=== PATIENT | female | born 1940 | race Caucasian/White ===

== ENCOUNTER 2023-11-12 14:30 | Outpatient (RCR) | payer MEDICARE, SELFPAY ==
--- NOTE | 2023-11-03 14:43 | PT.OIE ---
Current Diagnoses Pain in left hip (11/03/23) Muscle weakness (generalized) (11/03/23) Visit Care Team Role Provider Type Alice Deal MD Attending Provider Non-Staff Primary Care Provider Referring Provider Specialty: Family Practice Address: [facility], [address] [place] [address], [place], [address] Fax: Email: Physical Therapy Initial Evaluation PT-OP-A Visit Information Start: 11/03/23 14:21 Freq: Status: Active Protocol: Document 11/03/23 10:30 DCW (Rec: 11/03/23 14:43 DCW [id number]) Out-Patient Physical Therapy Visit Information Visit Information Visit Type Initial Evaluation Visit Start Time 10:30 Visit Stop Time 11:15 Visit Number 1 Number of PASTER OPERATOR Visits 0 Evaluation Information Evaluation Date 11/03/23 PT-OP-B Current Condition Start: 11/03/23 14:21 Freq: Status: Active Protocol: Document 11/03/23 10:30 DCW (Rec: 11/03/23 14:43 DCW [id number]) Current Condition History of Current Condition Onset Date One year Current Complaints Worsening L hip pain ascending stairs History of Current Condition Pt is an 82 year old female presenting with a one year history of worsening left hip pain with ascending stairs. Pt notes this is very specifically the only think that typically causes her symptoms. If she performs a step-to pattern leading with her right, there is no pain. No stairs in her home, but does have a few in her daughter's house. No other overall complaints. PT-OP-C Subjective Start: 11/03/23 14:21 Freq: Status: Active Protocol: Document 11/03/23 10:30 DCW (Rec: 11/03/23 14:43 DCW [id number]) OP-PT Subjective Patient Comments Patient Comments I feel kind of silly coming in here for this small of a thing, but my daughter decided that I needed to. Patient Reported Progress Worse Patient Questionnaires Lower Extremity Functional Scale LEFS Score 54/80 = 67.5% LEFS Impairment 20 to 39% Impaired (Score 48- 62) PT-OP-F Manual Assessment Start: 11/03/23 14:21 Freq: Status: Active Protocol: Document 11/03/23 10:30 DCW (Rec: 11/03/23 14:43 DCW [id number]) Manual Assessments Joint Mobility Assessment Joint Mobility Assessment PROM of left hip fairly significantly limited, difficult to mobilize pt's hip past 90? flexion or 5? internal rotation. PT-OP-K Range of Motion Start: 11/03/23 14:21 Freq: Status: Active Protocol: Document 11/03/23 10:30 DCW (Rec: 11/03/23 14:43 DCW [id number]) Hip Goniometric Range of Motion Hip Left Active Hip ROM WFL No Testing Position Supine Flexion w/Knee Flexed 92 Internal Rotation 5 Comments Adduction: 7? Hip ROM Limitations Hip ROM Limitations Bony Restriction PT-OP-L Special Tests Start: 11/03/23 14:21 Freq: Status: Active Protocol: Document 11/03/23 10:30 DCW (Rec: 11/03/23 14:43 DCW [id number]) Special Tests Hip Special Tests Dilshad Test Results Negative Straight Leg Raise Test Results Negative Scour Test Test Results Mild soreness YO Test Results Negative PT-OP-M Strength Start: 11/03/23 14:21 Freq: Status: Active Protocol: Document 11/03/23 10:30 DCW (Rec: 11/03/23 14:43 DCW [id number]) Hip Strength Hip Manual Muscle Testing Right Flexion (L2) 4- Good- Extension (S1) 4- Good- Abduction 4- Good- Adduction 4- Good- External Rotation 4- Good- Internal Rotation 4- Good- Left Flexion (L2) 3 Fair Extension (S1) 4- Good- Abduction 4- Good- External Rotation 4- Good- Internal Rotation 3 Fair PT-OP-Q Treatments Start: 11/03/23 14:21 Freq: Status: Active Protocol: Document 11/03/23 10:30 DCW (Rec: 11/03/23 14:43 DCW [id number]) Therapeutic Exercises Sidelying Exercises Abduction Sidelying Exercise Name Hip Abduction Side left Comments HEP Reverse Clamshell Sidelying Exercise Name Reverse Clamshell Side left Comments HEP Clamshell Sidelying Exercise Name Clamshell Side left Comments HEP Standing Exercises Toe Taps Standing Exercise Name Toe-taps Side bilateral Comments HEP Abduction Standing Exercise Name Hip Abduction Side bilateral Resistance Lv 1 T-band Comments HEP PT-OP-T Assessment and Plan Start: 11/03/23 14:21 Freq: Status: Active Protocol: Document 11/03/23 10:30 DCW (Rec: 11/03/23 14:43 DCW [id number]) Physical Therapy Assessment Rehab Potential Rehabilitation Potential Good Evaluation Complexity Number of Personal Factors/Comorbidities 0 Number of Body Systems Impaired 1-2 Clinical Presentation at Evaluation Evolving Impairments Impairments Functional Activities, Functional Mobility,Pain Goals Two Impairment Pt unable to ascend stairs using step-through gait without left hip pain Alf Goal (LTG) Pt to return to ascending stairs step-through without pain in order to improve ability to visit daughter's home LTG Duration 01/03/24 One Impairment Pt does not have an appropriate home exercise program Short Term Goal (STG) Pt to be independent and compliant with an appropriate HEP STG Duration 12/04/23 Assessment Summary Assessment Pt presents with 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 Fairly limited with active and passive ROM secondary to decline in joint surface integrity. Pt overall weakness in hips is somewhat limited in testing due to apparent DJD limiting pt from moving joint through full ROM against gravity. At this point , however, pt only bothered by pain during ascending stairs. Will likely benefit from skilled therapeutic intervention focusing on improving hip strength and mobility, but if symptoms remain fairly consistent, will likely transition quickly to an independent HEP focusing on strengthening and stabilization of her bilateral hips. Physical Therapy Plan Frequency and Duration Frequency of Treatment 1-2x/week Plan of Care Start Date 11/03/23 Plan of Care End Date 01/03/24 Therapeutic Interventions Therapeutic Interventions Home Exercise Program,Joint Mobilizations,Manual Therapy, Neuromuscular Re-education, Patient/Caregiver Education, Self-Care/Home Management,Soft Tissue Mobilization, Therapeutic Activities, Therapeutic Exercises Next Visit Focus/Plan Next Note Type Treatment Note Next Visit Plan Hip strengthening, gentlr stretching/ROM
--- NOTE | 2023-11-03 14:44 | PT.OPPOC ---
Physical, Occupational & Speech Therapy At [facility] Current Diagnoses Pain in left hip (11/03/23) Muscle weakness (generalized) (11/03/23) Visit Care Team Role Provider Type Alice Deal MD Attending Provider Non-Staff Primary Care Provider Referring Provider Specialty: Family Practice Address: [facility], [address] [place] [address], [address] Fax: Email: Plan Of Care PT-OP-T Assessment and Plan Start: 11/03/23 14:21 Freq: Status: Active Protocol: Document 11/03/23 10:30 DCW (Rec: 11/03/23 14:43 DCW [id number]) Physical Therapy Assessment Rehab Potential Rehabilitation Potential Good Evaluation Complexity Number of Personal Factors/Comorbidities 0 Number of Body Systems Impaired 1-2 Clinical Presentation at Evaluation Evolving Impairments Impairments Functional Activities, Functional Mobility,Pain Goals Two Impairment Pt unable to ascend stairs using step-through gait without left hip pain Prison Goal (LTG) Pt to return to ascending stairs step-through without pain in order to improve ability to visit daughter's home LTG Duration 01/03/24 One Impairment Pt does not have an appropriate home exercise program Short Term Goal (STG) Pt to be independent and compliant with an appropriate HEP STG Duration 12/04/23 Assessment Summary Assessment Pt presents with 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 Fairly limited with active and passive ROM secondary to decline in joint surface integrity. Pt overall weakness in hips is somewhat limited in testing due to apparent DJD limiting pt from moving joint through full ROM against gravity. At this point , however, pt only bothered by pain during ascending stairs. Will likely benefit from skilled therapeutic intervention focusing on improving hip strength and mobility, but if symptoms remain fairly consistent, will likely transition quickly to an independent HEP focusing on strengthening and stabilization of her bilateral hips. Physical Therapy Plan Frequency and Duration Frequency of Treatment 1-2x/week Plan of Care Start Date 11/03/23 Plan of Care End Date 01/03/24 Therapeutic Interventions Therapeutic Interventions Home Exercise Program,Joint Mobilizations,Manual Therapy, Neuromuscular Re-education, Patient/Caregiver Education, Self-Care/Home Management,Soft Tissue Mobilization, Therapeutic Activities, Therapeutic Exercises Next Visit Focus/Plan Next Note Type Treatment Note Next Visit Plan Hip strengthening, gentle stretching/ROM Plan of Care Dates Plan of Care Start Date 11/03/23 Plan of Care End Date 01/03/24 Electronically Signed by: Elmo Caro, PT 11/03/23 8989 If you are in agreement with this Plan of Care, please return a signed and dated copy. I have reviewed this Plan of Care and certify that the skilled therapy services above are required to meet the patient?s needs. Physician Signature Date Printed Name and Credentials Clinical Instructor Signature Printed Name and Credentials
--- NOTE | 2023-11-05 11:15 | PT.OTN ---
Current Diagnoses Pain in left hip (11/05/23) Muscle weakness (generalized) (11/05/23) Physical Therapy Treatment Note PT-OP-A Visit Information Start: 11/03/23 14:21 Freq: Status: Active Protocol: Document 11/05/23 10:30 DCW (Rec: 11/05/23 11:15 DCW [id number]) Out-Patient Physical Therapy Visit Information Visit Information Visit Type Treatment Note Visit Start Time 10:30 Visit Stop Time 11:15 Visit Number 2 Number of COMMERCIAL SALES REPRESENTATIVE Visits 0 Evaluation Information Evaluation Date 11/03/23 PT-OP-B Current Condition Start: 11/03/23 14:21 Freq: Status: Active Protocol: Document 11/03/23 10:30 DCW (Rec: 11/03/23 14:43 DCW [id number]) Current Condition History of Current Condition Onset Date One year Current Complaints Worsening L hip pain ascending stairs History of Current Condition Pt is an 82 year old female presenting with a one year history of worsening left hip pain with ascending stairs. Pt notes this is very specifically the only think that typically causes her symptoms. If she performs a step-to pattern leading with her right, there is no pain. No stairs in her home, but does have a few in her daughter's house. No other overall complaints. PT-OP-C Subjective Start: 11/03/23 14:21 Freq: Status: Active Protocol: Document 11/05/23 10:30 DCW (Rec: 11/05/23 11:15 DCW [id number]) OP-PT Subjective Patient Comments Patient Comments I'm feeling alright. I did my exercises. PT-OP-F Manual Assessment Start: 11/03/23 14:21 Freq: Status: Active Protocol: Document 11/03/23 10:30 DCW (Rec: 11/03/23 14:43 DCW [id number]) Manual Assessments Joint Mobility Assessment Joint Mobility Assessment PROM of left hip fairly significantly limited, difficult to mobilize pt's hip past 90? flexion or 5? internal rotation. PT-OP-K Range of Motion Start: 11/03/23 14:21 Freq: Status: Active Protocol: Document 11/03/23 10:30 DCW (Rec: 11/03/23 14:43 DCW [id number]) Hip Goniometric Range of Motion Hip Left Active Hip ROM WFL No Testing Position Supine Flexion w/Knee Flexed 92 Internal Rotation 5 Comments Adduction: 7? Hip ROM Limitations Hip ROM Limitations Bony Restriction PT-OP-L Special Tests Start: 11/03/23 14:21 Freq: Status: Active Protocol: Document 11/03/23 10:30 DCW (Rec: 11/03/23 14:43 DCW [id number]) Special Tests Hip Special Tests Dilshad Test Results Negative Straight Leg Raise Test Results Negative Scour Test Test Results Mild soreness YO Test Results Negative PT-OP-M Strength Start: 11/03/23 14:21 Freq: Status: Active Protocol: Document 11/03/23 10:30 DCW (Rec: 11/03/23 14:43 DCW [id number]) Hip Strength Hip Manual Muscle Testing Right Flexion (L2) 4- Good- Extension (S1) 4- Good- Abduction 4- Good- Adduction 4- Good- External Rotation 4- Good- Internal Rotation 4- Good- Left Flexion (L2) 3 Fair Extension (S1) 4- Good- Abduction 4- Good- External Rotation 4- Good- Internal Rotation 3 Fair PT-OP-Q Treatments Start: 11/03/23 14:21 Freq: Status: Active Protocol: Document 11/05/23 10:30 DCW (Rec: 11/05/23 11:15 DCW [id number]) Cardio Equipment Recumbent Elliptical (Biodex) Duration (Minutes) 5 Resistance 5 Seat Position 11 Gym Equipment Shuttle Recovery Unilateral Squats Resistance 37# Bilateral Squats Resistance 75# Shuttle Balance Red Details WBOS, Staggered, Lateral Therapeutic Exercises Other Exercises Step-ups Other Exercise Name Step-ups Side bilateral Equipment Used 4->6 step Resisted Ambulation Other Exercise Name Resisted side-stepping Resistance Green loop Lunge Other Exercise Name BOSU Lunge Side bilateral PT-OP-T Assessment and Plan Start: 11/03/23 14:21 Freq: Status: Active Protocol: Document 11/05/23 10:30 DCW (Rec: 11/05/23 11:15 DCW [id number]) Physical Therapy Assessment Impairments Impairments Functional Activities, Functional Mobility,Pain Goals Two Impairment Pt unable to ascend stairs using step-through gait without left hip pain Failure Analysis Technician Goal (LTG) Pt to return to ascending stairs step-through without pain in order to improve ability to visit daughter's home LTG Duration 01/03/24 One Impairment Pt does not have an appropriate home exercise program Short Term Goal (STG) Pt to be independent and compliant with an appropriate HEP STG Duration 12/04/23 Assessment Summary Assessment Pt exhibited very good tolerance to activity today, some slight discomfort/ stiffness in hip, but no activities causing increased pain today, including step-ups . Continue to focus on strengthening and stabilization of hip, improve functional mobility. Physical Therapy Plan Frequency and Duration Frequency of Treatment 1-2x/week Plan of Care Start Date 11/03/23 Plan of Care End Date 01/03/24 Therapeutic Interventions Therapeutic Interventions Home Exercise Program,Joint Mobilizations,Manual Therapy, Neuromuscular Re-education, Patient/Caregiver Education, Self-Care/Home Management,Soft Tissue Mobilization, Therapeutic Activities, Therapeutic Exercises Next Visit Focus/Plan Next Note Type Treatment Note Next Visit Plan Hip strengthening, gentle stretching/ROM
--- NOTE | 2023-11-10 12:54 | PT.OTN ---
Current Diagnoses Pain in left hip (11/10/23) Muscle weakness (generalized) (11/10/23) Physical Therapy Treatment Note PT-OP-A Visit Information Start: 11/03/23 14:21 Freq: Status: Active Protocol: Document 11/10/23 10:34 AB (Rec: 11/10/23 11:17 AB [id number]) Out-Patient Physical Therapy Visit Information Visit Information Visit Type Treatment Note Visit Note Access Code: [email or web address] Visit Start Time 10:35 Visit Stop Time 11:17 Visit Number 3 Number of HANDBELL CHOIR DIRECTOR Visits 1 Evaluation Information Evaluation Date 11/03/23 PT-OP-B Current Condition Start: 11/03/23 14:21 Freq: Status: Active Protocol: Document 11/03/23 10:30 DCW (Rec: 11/03/23 14:43 DCW [id number]) Current Condition History of Current Condition Onset Date One year Current Complaints Worsening L hip pain ascending stairs History of Current Condition Pt is an 82 year old female presenting with a one year history of worsening left hip pain with ascending stairs. Pt notes this is very specifically the only think that typically causes her symptoms. If she performs a step-to pattern leading with her right, there is no pain. No stairs in her home, but does have a few in her daughter's house. No other overall complaints. PT-OP-C Subjective Start: 11/03/23 14:21 Freq: Status: Active Protocol: Document 11/10/23 10:34 AB (Rec: 11/10/23 11:17 AB [id number]) OP-PT Subjective Patient Comments Patient Comments Patient reports she is about the same. Patient ascends 6 inch steps with a step to pattern favoring right LE, reporting no pain left hip comments it ususally hurts at the groin. PT-OP-F Manual Assessment Start: 11/03/23 14:21 Freq: Status: Active Protocol: Document 11/03/23 10:30 DCW (Rec: 11/03/23 14:43 DCW [id number]) Manual Assessments Joint Mobility Assessment Joint Mobility Assessment PROM of left hip fairly significantly limited, difficult to mobilize pt's hip past 90? flexion or 5? internal rotation. PT-OP-K Range of Motion Start: 11/03/23 14:21 Freq: Status: Active Protocol: Document 11/03/23 10:30 DCW (Rec: 11/03/23 14:43 DCW [id number]) Hip Goniometric Range of Motion Hip Left Active Hip ROM WFL No Testing Position Supine Flexion w/Knee Flexed 92 Internal Rotation 5 Comments Adduction: 7? Hip ROM Limitations Hip ROM Limitations Bony Restriction PT-OP-L Special Tests Start: 11/03/23 14:21 Freq: Status: Active Protocol: Document 11/03/23 10:30 DCW (Rec: 11/03/23 14:43 DCW [id number]) Special Tests Hip Special Tests Dilshad Test Results Negative Straight Leg Raise Test Results Negative Scour Test Test Results Mild soreness YO Test Results Negative PT-OP-M Strength Start: 11/03/23 14:21 Freq: Status: Active Protocol: Document 11/03/23 10:30 DCW (Rec: 11/03/23 14:43 DCW [id number]) Hip Strength Hip Manual Muscle Testing Right Flexion (L2) 4- Good- Extension (S1) 4- Good- Abduction 4- Good- Adduction 4- Good- External Rotation 4- Good- Internal Rotation 4- Good- Left Flexion (L2) 3 Fair Extension (S1) 4- Good- Abduction 4- Good- External Rotation 4- Good- Internal Rotation 3 Fair PT-OP-Q Treatments Start: 11/03/23 14:21 Freq: Status: Active Protocol: Document 11/10/23 10:34 AB (Rec: 11/10/23 11:17 AB [id number]) Therapeutic Exercises Supine Exercises Dilshad stretch modified Supine Exercise Name with AROM knee flexion X 10 Side left Reps/Minutes 60 sec X 2 piriformis stretch Supine Exercise Name trialed without then with towel roll at groin Reps/Minutes X2 Comments not shayy, reports feeling it at the groin Sidelying Exercises Abduction Sidelying Exercise Name Hip Abduction Side left Reps/Minutes X15 Comments HEP VC to avoid rolling back Reverse Clamshell Sidelying Exercise Name Reverse Clamshell Side left Reps/Minutes X15 Clamshell Sidelying Exercise Name Clamshell Side left Reps/Minutes X15 Comments HEP VC to avoid rolling back Sitting Exercises seated hip abduction with band Resistance level 3 [place] band Reps/Minutes one minute X 1 Comments Pt ed rationale of one minute hold for activation Standing Exercises sit to stand Reps/Minutes X3 Comments increased difficulty avoiding excessive toe out left LE, inc UE mini squat Side bilateral Equipment Used trial of level 3 then level 2 band X 3 and X 2 Reps/Minutes X3 X2 then 2X 10 without band Comments VC hip hinge, avoid toe out, band not able to perform correctly Other Exercises Resisted Ambulation Other Exercise Name Resisted side-stepping Resistance Green loop Reps/Minutes 8 feet left and right X 3 Manual Therapy Treatment Soft Tissue Mobilization left glute/piriformis Body Position Sidelying PT-OP-T Assessment and Plan Start: 11/03/23 14:21 Freq: Status: Active Protocol: Document 11/10/23 10:34 AB (Rec: 11/10/23 11:17 AB [id number]) Physical Therapy Assessment Goals Two Impairment Pt unable to ascend stairs using step-through gait without left hip pain Chcf Goal (LTG) Pt to return to ascending stairs step-through without pain in order to improve ability to visit daughter's home LTG Duration 01/03/24 One Impairment Pt does not have an appropriate home exercise program Short Term Goal (STG) Pt to be independent and compliant with an appropriate HEP STG Duration 12/04/23 Assessment Summary Assessment Patient into session with reports of no pain on trial of ascending and descending 6 inch steps start of session. Physical Therapy Plan Frequency and Duration Frequency of Treatment 1-2x/week Plan of Care Start Date 11/03/23 Plan of Care End Date 01/03/24 Next Visit Focus/Plan Next Note Type Treatment Note Next Visit Plan Hip strengthening, gentle stretching/ROM
--- NOTE | 2023-11-12 14:49 | PT.OTN ---
Current Diagnoses Pain in left hip (11/12/23) Muscle weakness (generalized) (11/12/23) Physical Therapy Treatment Note PT-OP-A Visit Information Start: 11/03/23 14:21 Freq: Status: Active Protocol: Document 11/12/23 14:30 DCW (Rec: 11/12/23 14:49 DCW [id number]) Out-Patient Physical Therapy Visit Information Visit Information Visit Type Treatment Note Visit Start Time 14:30 Visit Stop Time 15:15 Visit Number 4 Number of INDUSTRIAL MANAGEMENT TEACHER Visits 0 Evaluation Information Evaluation Date 11/03/23 PT-OP-B Current Condition Start: 11/03/23 14:21 Freq: Status: Active Protocol: Document 11/03/23 10:30 DCW (Rec: 11/03/23 14:43 DCW [id number]) Current Condition History of Current Condition Onset Date One year Current Complaints Worsening L hip pain ascending stairs History of Current Condition Pt is an 82 year old female presenting with a one year history of worsening left hip pain with ascending stairs. Pt notes this is very specifically the only think that typically causes her symptoms. If she performs a step-to pattern leading with her right, there is no pain. No stairs in her home, but does have a few in her daughter's house. No other overall complaints. PT-OP-C Subjective Start: 11/03/23 14:21 Freq: Status: Active Protocol: Document 11/12/23 14:30 DCW (Rec: 11/12/23 14:49 DCW [id number]) OP-PT Subjective Patient Comments Patient Comments It seems a little better. Doing stairs hasn't bothered me as much. PT-OP-F Manual Assessment Start: 11/03/23 14:21 Freq: Status: Active Protocol: Document 11/03/23 10:30 DCW (Rec: 11/03/23 14:43 DCW [id number]) Manual Assessments Joint Mobility Assessment Joint Mobility Assessment PROM of left hip fairly significantly limited, difficult to mobilize pt's hip past 90? flexion or 5? internal rotation. PT-OP-K Range of Motion Start: 11/03/23 14:21 Freq: Status: Active Protocol: Document 11/03/23 10:30 DCW (Rec: 11/03/23 14:43 DCW [id number]) Hip Goniometric Range of Motion Hip Left Active Hip ROM WFL No Testing Position Supine Flexion w/Knee Flexed 92 Internal Rotation 5 Comments Adduction: 7? Hip ROM Limitations Hip ROM Limitations Bony Restriction PT-OP-L Special Tests Start: 11/03/23 14:21 Freq: Status: Active Protocol: Document 11/03/23 10:30 DCW (Rec: 11/03/23 14:43 DCW [id number]) Special Tests Hip Special Tests Dilshad Test Results Negative Straight Leg Raise Test Results Negative Scour Test Test Results Mild soreness YO Test Results Negative PT-OP-M Strength Start: 11/03/23 14:21 Freq: Status: Active Protocol: Document 11/03/23 10:30 DCW (Rec: 11/03/23 14:43 DCW [id number]) Hip Strength Hip Manual Muscle Testing Right Flexion (L2) 4- Good- Extension (S1) 4- Good- Abduction 4- Good- Adduction 4- Good- External Rotation 4- Good- Internal Rotation 4- Good- Left Flexion (L2) 3 Fair Extension (S1) 4- Good- Abduction 4- Good- External Rotation 4- Good- Internal Rotation 3 Fair PT-OP-Q Treatments Start: 11/03/23 14:21 Freq: Status: Active Protocol: Document 11/12/23 14:30 DCW (Rec: 11/12/23 14:49 DCW [id number]) Gait Training Gait Activity Stairs Level of Assistance Independent Comments 14 stairs ascend/descend PT-OP-T Assessment and Plan Start: 11/03/23 14:21 Freq: Status: Active Protocol: Document 11/12/23 14:30 DCW (Rec: 11/12/23 14:49 DCW [id number]) Physical Therapy Assessment Impairments Impairments Functional Activities, Functional Mobility,Pain Goals Two Impairment Pt unable to ascend stairs using step-through gait without left hip pain Intermediate Goal (LTG) Pt to return to ascending stairs step-through without pain in order to improve ability to visit daughter's home LTG Duration Met One Impairment Pt does not have an appropriate home exercise program Short Term Goal (STG) Pt to be independent and compliant with an appropriate HEP STG Duration Met Progress Towards Goals Progress Towards Goals Goals Met Assessment Summary Assessment Pt feeling good overall, has been doing stairs with no pain . Pt much more concerned about arm pain following a fall ~6 weeks ago, would like to discharge from skilled therapy at this time in order to get a new referral for her arm. Physical Therapy Plan Frequency and Duration Frequency of Treatment 1-2x/week Plan of Care Start Date 11/03/23 Plan of Care End Date 01/03/24 Therapeutic Interventions Therapeutic Interventions Home Exercise Program,Joint Mobilizations,Manual Therapy, Neuromuscular Re-education, Patient/Caregiver Education, Self-Care/Home Management,Soft Tissue Mobilization, Therapeutic Activities, Therapeutic Exercises Discharge Physical Therapy Discharge Reasons Goals Met Next Visit Focus/Plan Next Note Type Discharge Summary
== END 2023-11-16 13:51 | disposition home or self-care (01) ==
LOC: PHYS 14:30
PROVIDERS: PCP Family Medicine; Referring Provider Family Medicine; Visit Provider Family Medicine
DX: M25.552 Pain in left hip (principal); M62.81 Muscle weakness (generalized)
CPT/HCPCS: 97110; 97112; 97116; 97140; 97161

== ENCOUNTER 2023-12-22 10:30 | Outpatient (RCR) | payer MEDICARE, SELFPAY ==
--- NOTE | 2023-12-15 15:12 | PT.OIE ---
Current Diagnoses Unspecified injury of right shoulder and upper arm, subsequent encounter (12/15/23) Unspecified injury of right shoulder and upper arm, sequela (12/15/23) Unspecified injury of other muscles, fascia and tendons at forearm level, right arm, subsequent encounter (12/15/23) Visit Care Team Role Provider Type Alice Deal MD Attending Provider Non-Staff Family Provider Primary Care Provider Referring Provider Specialty: Family Practice Address: [facility], [address] [place] [address], [place], [address] Fax: Email: Physical Therapy Initial Evaluation PT-OP-A Visit Information Start: 12/15/23 11:04 Freq: Status: Active Protocol: Document 12/15/23 09:45 DCW (Rec: 12/15/23 11:08 DCW [id number]) Out-Patient Physical Therapy Visit Information Visit Information Visit Type Initial Evaluation Visit Start Time 09:45 Visit Stop Time 10:30 Visit Number 1 Number of ELEVATOR ADJUSTER Visits 0 Evaluation Information Evaluation Date 12/15/23 PT-OP-B Current Condition Start: 12/15/23 11:04 Freq: Status: Active Protocol: Document 12/15/23 09:45 DCW (Rec: 12/15/23 12:20 DCW [id number]) Current Condition History of Current Condition Onset Date 10 week history Current Complaints Wrist/arm pain following fall History of Current Condition Pt is a 83 year old female presenting with a 10 week history of right wrist/arm pain. Pt reports she was walking across a parking lot, tripped over a speed bump, and suffered an FOOSH injury to her right arm. Pt noted that she was experiencing increased pain and difficulty with things like opening doors arm lifting weights, however does admit that she has seen some improvement over the last few weeks, and has minimal complaints at this time. It's mostly gone, theres still just a little bit left. Currently just feeling like her right arm is weaker than her left when participating in her exercise class Prior Treatments and Tests Pt was recently treated in this clinic for left hip pain, discharged one month ago. Treatment Goals Patient/Caregiver Goals Improve R UE strength PT-OP-C Subjective Start: 12/15/23 11:04 Freq: Status: Active Protocol: Document 12/15/23 09:45 DCW (Rec: 12/15/23 11:08 DCW [id number]) OP-PT Subjective Patient Comments Patient Comments It has gotten better over time, especially the last few weeks. I'm not entirely sure I need to be here. PT-OP-F Manual Assessment Start: 12/15/23 11:04 Freq: Status: Active Protocol: Document 12/15/23 09:45 DCW (Rec: 12/15/23 11:15 DCW [id number]) Manual Assessments Joint Mobility Assessment Joint Mobility Assessment No notable joint instability in carpals, CMC, or MCP joints , no pain with palpation PT-OP-K Range of Motion Start: 12/15/23 11:04 Freq: Status: Active Protocol: Document 12/15/23 09:45 DCW (Rec: 12/15/23 11:15 DCW [id number]) Shoulder Goniometric Range of Motion Shoulder Right Active Testing Position Sitting Flexion 125 Abduction 137 External Rotation at 0 degrees Abduction 53 Internal Rotation Behind Back (text) T10 Left Active Testing Position Sitting Flexion 125 Abduction 160 External Rotation at 0 degrees Abduction 54 Internal Rotation Behind Back (text) T10 Elbow/Forearm Range of Motion Elbow/Forearm Right Active ROM Testing Position Sitting Elbow Flexion (degrees) 138 Pronation (degrees) 85 Supination (degrees) 85 Left Active ROM Testing Position Sitting Elbow Flexion (degrees) 141 Elbow Extension (degrees) 0 Pronation (degrees) 85 Supination (degrees) 85 Wrist Goniometric Range of Motion Wrist Right Flexion Active (degrees) 50 Extension Active (degrees) 60 Ulnar Deviation Active (degrees) 30 Radial Deviation Active (degrees) 15 Left Flexion Active (degrees) 50 Extension Active (degrees) 55 Ulnar Deviation Active (degrees) 30 Radial Deviation Active (degrees) 15 PT-OP-L Special Tests Start: 12/15/23 11:04 Freq: Status: Active Protocol: Document 12/15/23 09:45 DCW (Rec: 12/15/23 11:15 DCW [id number]) Special Tests Wrist/Hand Special Tests Faith's Test Results Negative PT-OP-M Strength Start: 12/15/23 11:04 Freq: Status: Active Protocol: Document 12/15/23 09:45 DCW (Rec: 12/15/23 11:15 DCW [id number]) Elbow/Forearm Strength Elbow and Forearm Manual Muscle Testing Right Flexion (C6) 4 Good Extension (C7) 4 Good Pronation 3 Fair Supination 4 Good Comments Pronation limited secondary to pain Left Flexion (C6) 4 Good Extension (C7) 4 Good Pronation 4 Good Supination 4 Good Wrist Strength Wrist Manual Muscle Testing Right Flexion (C7) 4 Good Extension (C6) 4 Good Ulnar Deviation 4 Good Radial Deviation 4 Good Left Flexion (C7) 4 Good Extension (C6) 4 Good Ulnar Deviation 4 Good Radial Deviation 4 Good Hand Piano Technician/Pinch Strength Hand Dominance Hand Dominance Mixed Hand Strength Right Piano Technician (lbs) 25 Comments Three-trial average (25, 25, 25) Left Piano Technician (lbs) 40 Comments Three-trial average (45,45,35) PT-OP-Q Treatments Start: 12/15/23 11:04 Freq: Status: Active Protocol: Document 12/15/23 09:45 DCW (Rec: 12/15/23 11:08 DCW [id number]) Therapeutic Exercises Sitting Exercises Piano Technician Sitting Exercise Name Thera-putty senior telecommunications technician strengthening Side right Comments Full senior telecommunications technician, individual finger senior telecommunications technician, rios senior telecommunications technician Wrist flexion Sitting Exercise Name 4-way wrist flexion Side right Resistance Latex-free green Pronation/Supination Sitting Exercise Name Hammer pro/supination Side right PT-OP-T Assessment and Plan Start: 12/15/23 11:04 Freq: Status: Active Protocol: Document 12/15/23 09:45 DCW (Rec: 12/15/23 15:12 DCW [id number]) Physical Therapy Assessment Rehab Potential Rehabilitation Potential Excellent Evaluation Complexity Number of Personal Factors/Comorbidities 1-2 Number of Body Systems Impaired 4 or More Clinical Presentation at Evaluation Stable Impairments Impairments Functional Activities, Functional Mobility,Pain, Strength Goals Two Impairment Pt demonstrates right-sided senior telecommunications technician weakness (25# R vs 40# L) Shelter Goal (LTG) Pt to increase right-sided senior telecommunications technician strength to at least 40# in order to improve ability to open doors and jars without increased pain. LTG Duration 02/15/24 One Impairment Pt does not have an appropriate home exercise program Short Term Goal (STG) Pt to be independent and compliant with an appropriate HEP STG Duration 01/15/24 Assessment Summary Assessment Pt presents with signs and symptoms consistent with referring diagnosis. Pt experienced what appears to be a soft tissue strain/injury at the time of her fall 10 weeks ago, but since that time , has healed enough that no actual injury is evident, just general right-sided senior telecommunications technician weakness and increased pain with resisted right pronation. ROM appears to be largely equal between left and right, no palpable pain or joint instability. Pt should benefit from skilled therapy focusing on improving general strength , as well as decreasing pain with daily activity. Physical Therapy Plan Frequency and Duration Frequency of Treatment 2x/Week Plan of Care Start Date 12/15/23 Plan of Care End Date 02/15/24 Therapeutic Interventions Therapeutic Interventions Home Exercise Program,Joint Mobilizations,Manual Therapy, Neuromuscular Re-education, Patient/Caregiver Education, Self-Care/Home Management,Soft Tissue Mobilization, Therapeutic Activities, Therapeutic Exercises Modalities Cold Pack/Ice Massage,Hot Packs Next Visit Focus/Plan Next Note Type Treatment Note Next Visit Plan Wrist/senior telecommunications technician strengthening, mobility.
--- NOTE | 2023-12-15 15:13 | PT.OPPOC ---
Physical, Occupational & Speech Therapy At [facility] Current Diagnoses Unspecified injury of right shoulder and upper arm, subsequent encounter (12/15/23) Unspecified injury of right shoulder and upper arm, sequela (12/15/23) Unspecified injury of other muscles, fascia and tendons at forearm level, right arm, subsequent encounter (12/15/23) Visit Care Team Role Provider Type Alice Deal MD Attending Provider Non-Staff Family Provider Primary Care Provider Referring Provider Specialty: Family Practice Address: [facility], [address] [place] [address], [phone] Fax: Email: Plan Of Care PT-OP-T Assessment and Plan Start: 12/15/23 11:04 Freq: Status: Active Protocol: Document 12/15/23 09:45 DCW (Rec: 12/15/23 15:12 DCW [id number]) Physical Therapy Assessment Rehab Potential Rehabilitation Potential Excellent Evaluation Complexity Number of Personal Factors/Comorbidities 1-2 Number of Body Systems Impaired 4 or More Clinical Presentation at Evaluation Stable Impairments Impairments Functional Activities, Functional Mobility,Pain, Strength Goals Two Impairment Pt demonstrates right-sided tax commissioner weakness (25# R vs 40# L) Train Operations Manager Goal (LTG) Pt to increase right-sided tax commissioner strength to at least 40# in order to improve ability to open doors and jars without increased pain. LTG Duration 02/15/24 One Impairment Pt does not have an appropriate home exercise program Short Term Goal (STG) Pt to be independent and compliant with an appropriate HEP STG Duration 01/15/24 Assessment Summary Assessment Pt presents with signs and symptoms consistent with referring diagnosis. Pt experienced what appears to be a soft tissue strain/injury at the time of her fall 10 weeks ago, but since that time , has healed enough that no actual injury is evident, just general right-sided tax commissioner weakness and increased pain with resisted right pronation. ROM appears to be largely equal between left and right, no palpable pain or joint instability. Pt should benefit from skilled therapy focusing on improving general strength , as well as decreasing pain with daily activity. Physical Therapy Plan Frequency and Duration Frequency of Treatment 2x/Week Plan of Care Start Date 12/15/23 Plan of Care End Date 02/15/24 Therapeutic Interventions Therapeutic Interventions Home Exercise Program,Joint Mobilizations,Manual Therapy, Neuromuscular Re-education, Patient/Caregiver Education, Self-Care/Home Management,Soft Tissue Mobilization, Therapeutic Activities, Therapeutic Exercises Modalities Cold Pack/Ice Massage,Hot Packs Next Visit Focus/Plan Next Note Type Treatment Note Next Visit Plan Wrist/tax commissioner strengthening, mobility. Plan of Care Dates Plan of Care Start Date 12/15/23 Plan of Care End Date 02/15/24 Electronically Signed by: Elmo Caro, PT 12/15/23 7095 If you are in agreement with this Plan of Care, please return a signed and dated copy. I have reviewed this Plan of Care and certify that the skilled therapy services above are required to meet the patient?s needs. Physician Signature Date Printed Name and Credentials Clinical Instructor Signature Printed Name and Credentials
--- NOTE | 2023-12-22 10:54 | PT.OTN ---
Current Diagnoses Unspecified injury of right shoulder and upper arm, subsequent encounter (12/22/23) Unspecified injury of right shoulder and upper arm, sequela (12/22/23) Unspecified injury of other muscles, fascia and tendons at forearm level, right arm, subsequent encounter (12/22/23) Physical Therapy Treatment Note PT-OP-A Visit Information Start: 12/15/23 11:04 Freq: Status: Active Protocol: Document 12/22/23 10:32 DCW (Rec: 12/22/23 10:52 DCW [id number]) Out-Patient Physical Therapy Visit Information Visit Information Visit Type Discharge Summary Visit Start Time 10:32 Visit Stop Time 10:49 Visit Number 2 Number of SUPPLY CHAIN TECHNICIAN Visits 0 Evaluation Information Evaluation Date 12/15/23 PT-OP-B Current Condition Start: 12/15/23 11:04 Freq: Status: Active Protocol: Document 12/15/23 09:45 DCW (Rec: 12/15/23 12:20 DCW [id number]) Current Condition History of Current Condition Onset Date 10 week history Current Complaints Wrist/arm pain following fall History of Current Condition Pt is a 83 year old female presenting with a 10 week history of right wrist/arm pain. Pt reports she was walking across a parking lot, tripped over a speed bump, and suffered an FOOSH injury to her right arm. Pt noted that she was experiencing increased pain and difficulty with things like opening doors arm lifting weights, however does admit that she has seen some improvement over the last few weeks, and has minimal complaints at this time. It's mostly gone, theres still just a little bit left. Currently just feeling like her right arm is weaker than her left when participating in her exercise class Prior Treatments and Tests Pt was recently treated in this clinic for left hip pain, discharged one month ago. Treatment Goals Patient/Caregiver Goals Improve R UE strength PT-OP-C Subjective Start: 12/15/23 11:04 Freq: Status: Active Protocol: Document 12/22/23 10:32 DCW (Rec: 12/22/23 10:52 DCW [id number]) OP-PT Subjective Patient Comments Patient Comments Pt has been compliant with her HEP, feels like her arm is improving. PT-OP-F Manual Assessment Start: 12/15/23 11:04 Freq: Status: Active Protocol: Document 12/15/23 09:45 DCW (Rec: 12/15/23 11:15 DCW [id number]) Manual Assessments Joint Mobility Assessment Joint Mobility Assessment No notable joint instability in carpals, CMC, or MCP joints , no pain with palpation PT-OP-K Range of Motion Start: 12/15/23 11:04 Freq: Status: Active Protocol: Document 12/15/23 09:45 DCW (Rec: 12/15/23 11:15 DCW [id number]) Shoulder Goniometric Range of Motion Shoulder Right Active Testing Position Sitting Flexion 125 Abduction 137 External Rotation at 0 degrees Abduction 53 Internal Rotation Behind Back (text) T10 Left Active Testing Position Sitting Flexion 125 Abduction 160 External Rotation at 0 degrees Abduction 54 Internal Rotation Behind Back (text) T10 Elbow/Forearm Range of Motion Elbow/Forearm Right Active ROM Testing Position Sitting Elbow Flexion (degrees) 138 Pronation (degrees) 85 Supination (degrees) 85 Left Active ROM Testing Position Sitting Elbow Flexion (degrees) 141 Elbow Extension (degrees) 0 Pronation (degrees) 85 Supination (degrees) 85 Wrist Goniometric Range of Motion Wrist Right Flexion Active (degrees) 50 Extension Active (degrees) 60 Ulnar Deviation Active (degrees) 30 Radial Deviation Active (degrees) 15 Left Flexion Active (degrees) 50 Extension Active (degrees) 55 Ulnar Deviation Active (degrees) 30 Radial Deviation Active (degrees) 15 PT-OP-L Special Tests Start: 12/15/23 11:04 Freq: Status: Active Protocol: Document 12/15/23 09:45 DCW (Rec: 12/15/23 11:15 DCW [id number]) Special Tests Wrist/Hand Special Tests Faith's Test Results Negative PT-OP-M Strength Start: 12/15/23 11:04 Freq: Status: Active Protocol: Document 12/22/23 10:32 DCW (Rec: 12/22/23 10:54 DCW [id number]) Hand Him Director/Pinch Strength Hand Dominance Hand Dominance Mixed Hand Strength Right Him Director (lbs) 40 Comments Three-trial average (40,40,40) Left Him Director (lbs) 40 Comments Three-trial average (45,40,35) PT-OP-Q Treatments Start: 12/15/23 11:04 Freq: Status: Active Protocol: Document 12/22/23 10:32 DCW (Rec: 12/22/23 10:52 [facility] [id number]) Cardio Equipment Upper Body Ergometer (UBE) Duration (Minutes) 4 RPM 60 Seat Position 13 Height 2 Other 2' fwd, 2' bkwd Therapeutic Exercises Sitting Exercises Flexibar Sitting Exercise Name Sup/Pro, Twist Side bilateral Resistance Red Flexibar PT-OP-T Assessment and Plan Start: 12/15/23 11:04 Freq: Status: Active Protocol: Document 12/22/23 10:32 DCW (Rec: 12/22/23 10:52 [facility] [id number]) Physical Therapy Assessment Impairments Impairments Functional Activities, Functional Mobility,Pain, Strength Goals Two Impairment Pt demonstrates right-sided campus wellness coordinator weakness (25# R vs 40# L) Fpc Goal (LTG) Pt to increase right-sided campus wellness coordinator strength to at least 40# in order to improve ability to open doors and jars without increased pain. LTG Duration Met One Impairment Pt does not have an appropriate home exercise program Short Term Goal (STG) Pt to be independent and compliant with an appropriate HEP STG Duration Met Assessment Summary Assessment Pt comes in today feeling completely fine following her initial evaluation last week. Him Director testing shows right = left. Pt has no complaints with pain or difficulty with daily activities. Pt agreeable to discharge at this time, feels as though she can continue independently as needed. Physical Therapy Plan Frequency and Duration Frequency of Treatment 2x/Week Plan of Care Start Date 12/15/23 Plan of Care End Date 02/15/24 Therapeutic Interventions Therapeutic Interventions Home Exercise Program,Joint Mobilizations,Manual Therapy, Neuromuscular Re-education, Patient/Caregiver Education, Self-Care/Home Management,Soft Tissue Mobilization, Therapeutic Activities, Therapeutic Exercises Modalities Cold Pack/Ice Massage,Hot Packs Discharge Physical Therapy Discharge Reasons Goals Met Next Visit Focus/Plan Next Note Type Discharge Summary
== END 2023-12-30 08:31 ==
LOC: PHYS 10:30
PROVIDERS: Family Provider Family Medicine; PCP Family Medicine; Referring Provider Family Medicine; Visit Provider Family Medicine
DX: S56.8 Injury of other muscles, fascia and tendons at forearm level (principal); S49.91XD Unspecified injury of right shoulder and upper arm, subsequent encounter; S49.91XS Unspecified injury of right shoulder and upper arm, sequela
CPT/HCPCS: 97110; 97161